=== PATIENT | male | born 1995 | race Caucasian/White ===

== ENCOUNTER 2025-03-03 08:32 | Emergency (ER) | payer OTHER, SELFPAY ==
[2025-03-03 08:37] VITALS: BP 113/74; PULSE 77; RESP 16; TEMP 36.4; O2SAT 100; BMI 20.7
--- NOTE | 2025-03-03 08:46 | CT_ITS ---
PROCEDURE: SPINE CERVICAL WITHOUT CONTRAS 03/03/2025 REASON FOR EXAM: FALL, SYNNCOPE TECHNIQUE: Procedure Code: CTSPC Modality: CT Procedure: SPINE CERVICAL WITHOUT CONTRAS Coronal and Sagittal reconstruction series were provided. One or more dose reduction techniques were used (e.g., Automated exposure control, adjustment of the mA and/or kV according to patient size, use of iterative reconstruction technique. RADIATION DOSE SUMMARY: DLP: 1261 mGycm COMPARISON: None FINDINGS: No acute compression deformity, fracture, or subluxation. No significant central canal stenosis or foramina stenosis. The prevertebral soft tissues are not thickened. Thyroid is unremarkable. Limited sections of the lung apices demonstrate no pneumothorax. CT/Spine Cervical without Contras IMPRESSION: No acute cervical fracture or subluxations. Reading Location: [id number]
--- NOTE | 2025-03-03 08:46 | CT_ITS ---
PROCEDURE: BRAIN/HEAD WITHOUT CONTRAST 03/03/2025 REASON FOR EXAM: FALL, SYNCOPE, HEAD TRAUMA TECHNIQUE: Procedure Code: CTBR Modality: CT Procedure: BRAIN/HEAD WITHOUT CONTRAST Coronal and Sagittal reconstruction series were provided. One or more dose reduction techniques were used (e.g., Automated exposure control, adjustment of the mA and/or kV according to patient size, use of iterative reconstruction technique. RADIATION DOSE SUMMARY: DLP: 830 mGycm COMPARISON: None FINDINGS: There is no acute infarct, intracranial hemorrhage, or mass effect. There is no hydrocephalus or significant midline shift. No acute, depressed calvarial fractures. Mild left frontal scalp contusion. The paranasal sinuses are clear. CT/Brain/Head without Contrast IMPRESSION: No acute intracranial process. Reading Location: [id number]
--- NOTE | 2025-03-03 08:46 | EKG12_ITS ---
Test Reason : ARRYTH Blood Pressure : */* mmHG Vent. Rate : 71 BPM Atrial Rate : 71 BPM P-R Int : 152 ms QRS Dur : 110 ms QT Int : 398 ms P-R-T Axes : 47 79 41 degrees QTcB Int : 432 ms Normal sinus rhythm with sinus arrhythmia Incomplete right bundle branch block Borderline ECG Confirmed by TITUS WILLIAMSON ([id number]), medical transcription editor REGINALD HERNÁNDEZ ([id number]) on 03/06/2025 6:56:07 AM Referred By: ER Confirmed By: TITUS WILLIAMSON
[2025-03-03 08:47] VITALS: BP 105/66; BP 108/70; BP 110/75; PULSE 66; PULSE 69; PULSE 81
--- NOTE | 2025-03-03 08:47 | EX.ED.DYSGE1 ---
HPI History of Present Illness Chief Complaint: Syncope Narrative Narrative: Patient is a 29-year-old male presenting to the emergency department for a syncopal event. 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 States that it was very hot in the room he was in. No seizure-like activity per bystanders. He states he does not remember anything shortly before passing out in the next thing he remembers is EMS telling him to come with them to the hospital. He states that he not drink or eat very much last night only had a banana. Denies any chest pain, shortness of breath, abdominal pain, nausea, vomiting or diaphoresis. He denies any dysuria or hematuria. Denies any vision changes, slurred speech, focal numbness or weakness. Denies any neck or back pain. States that this did happen once before in the summer and nothing was found on workup in the emergency department. He denies any family history of syncope or sudden cardiac . Prior similar symptoms: Yes Recent Illness/Hospitalization: No [facility] Medical History Syncope Social History Smoking Status: Current every day smoker tobacco type: smokeless tobacco ROS ROS ED ROS Narrative See HPI EXAM Physical Exam Narrative Exam Narrative: Vital signs: Reviewed General: Alert and orientedx2. Alert to self and place, not time. No acute distress HEENT: Head is normocephalic. 1 cm linear laceration to the left parietal scalp. oozing from the lac. Midface is stable and nontender to palpation. Pupils 3 mm equal round and reactive. Nares are patent. No septal hematoma. Oropharynx and throat exams normal. No oropharyngeal trauma. No tongue lacerations seen. Neck: Supple without lymphadenopathy nontender. Arrives in cervical collar. No midline cervical spinal tenderness to palpation. No step-offs or deformities. Cardiovascular: Regular rate and rhythm, no murmurs. No rubs or gallops. Normal S1 and S2 Respiratory: Clear to auscultation bilaterally. No wheezes, rales, rhonchi Chest: Chest wall is atraumatic and nontender to palpation. No crepitus, erythema or ecchymosis. Abdominal: Soft and nontender. Normal bowel sounds. No guarding or rebound. Nonsurgical abdomen Extremities: No midline thoracic or lumbar spinal tenderness to palpation. No step-offs or deformities. Extremities are atraumatic and nontender to palpation with normal active range of motion. Hips are stable and nontender to palpation. No bruising. Normal range of motion. Normal sensation. Skin: No rash or redness. Neurological: Cranial nerves II through XII are grossly intact. Normal strength and sensation. Normal cerebellar function The rest of the physical exam is unremarkable Const Vital Signs: 03/03/25 08:37 03/03/25 08:41 03/03/25 08:47 Temperature 97.6 F L Temperature Source Axillary Pulse Rate 77 Pulse Rate [Lying] 66 Pulse Rate [Sitting (for 1 minute prior to obtaining)] 69 Pulse Rate [Standing (for 1 minute prior to obtaining)] 81 Respiratory Rate 16 Respiratory Effort Normal Non-Labored Respiratory Pattern Tachypnea Blood Pressure 113/74 Blood Pressure [Lying] 105/66 Blood Pressure [Sitting (for 1 minute prior to obtaining)] 108/70 Blood Pressure [Standing (for 1 minute prior to obtaining)] 110/75 Blood Pressure Mean 87 Blood Pressure Mean [Lying] 79 Blood Pressure Mean [Sitting (for 1 minute prior to obtaining)] 82 Blood Pressure Mean [Standing (for 1 minute prior to obtaining)] 86 Pulse Ox 100 Oxygen Delivery Method Room Air MDM MDM MDM Narrative Medical decision making narrative: Patient is a 29-year-old male presenting to the emergency department after a syncopal event. Patient was seen and examined. Vitals are stable. Patient resting bed comfortably no acute distress. Differential includes but is not limited to: Vasovagal episode given this happened once in the summer and he was in a hot room today, did not eat or drink well prior. Possible seizure given alert and oriented x 2 possibly postictal. Cardiac dysrhythmia. Electrolyte derangement. Anemia. EKG shows NSR with sinus arrhythmia. No evidence of WPW, [place]. No ST elevation or depression. No abnormal T wave inversions. Fluid bolus started. CBC with no leukocytosis and normal hemoglobin. BMP with bicarb at 19.2 and anion gap of 17, no other significant abnormalities. Lactate of 3.3 which likely cause a small anion gap. Again fluids already running. Glucose of 123. CT brain with no acute intracranial process. CT cervical spine with no acute abnormalities. Chest x-ray reviewed by myself, no opacities, pneumothorax or widened mediastinum. Radiology read in agreement. Patient agreeable with a Adacel booster. This was given. Tylenol given for patient's head pain from the fall. Patient was reevaluated. He is now alert and oriented x 3. Cervical collar was removed and patient was able to fully range his neck with no pain. The small laceration on the left parietal portion of the scalp was irrigated copiously. No foreign body on wound exploration. Patient was offered lidocaine prior to stapling of the wound however explained that only 1 staple would be placed. He was agreeable with no lidocaine and going forward with the staple. 1 staple was placed with closure of the wound. Patient and family given wound care instructions including keeping the wound clean, dry. Instructed to watch for signs of infection including redness, drainage or warmth. Patient and family were educated on the elevated lactate and given his postictal period after the syncopal event I do have concern for first-time seizure. Him and his family were given instructions on following up with neurology as soon as possible and are taking in no swimming, bathing, operating heavy machinery or driving until following up. Patient was able to ambulate and tolerate p.o. prior to discharge. Patient discharged from the Emergency Department. I do not feel that the patient's evaluation reveals any acute reason for admission at this time. I instructed them to either follow-up with their primary care physician or promptly return to the Emergency Department for reevaluation should symptoms worsen or new symptoms develop. I explained what symptoms would indicate the need to return to the emergency department. Shared decision making was used. The patient voiced understanding of the treatment plan and is agreeable with it. Clinical impression: Seizure History & Record Review Discussion w/independent historian: EMS personnel, Patient and Significant other Lab Data Attestation: I reviewed the patient's lab results. Labs: Laboratory Results - last 24 hr 03/03/25 03/03/25 08:37 09:00 WBC 7.2 RBC 4.39 L Hgb 13.6 Hct 38.2 L MCV 87.0 MCH 31.0 MCHC 35.6 RDW Std Deviation 39.9 RDW Coeff of Oneal 12.6 Plt Count 178 MPV 9.6 Immature Gran % (Auto) 0.400 Neut % (Auto) 51.7 Lymph % (Auto) 37.4 Frederick % (Auto) 7.8 Eos % (Auto) 2.0 Baso % (Auto) 0.7 Absolute Neuts (auto) 3.7 Absolute Lymphs (auto) 2.68 Nucleated RBC % 0 Sodium 138 Potassium 3.6 Chloride 102 Carbon Dioxide 19.2 L Anion Gap 17 H BUN 12 Creatinine 0.95 Estim Creat Clear Calc 118.66 Est GFR (MDRD) Non-Af 111 BUN/Creatinine Ratio 12.1 Glucose 123 H Lactic Acid 3.3 H* Calcium 8.9 Radiography Chest X-Ray - ED: 1 View, Read by ED Physician, Normal, No Acute Disease and No Infiltrates Diagnostic Testing: Clinical Impression(s) from Imaging Studies Brain CT 03/03/25 08:46 IMPRESSION: No acute intracranial process. Reading Location: [facility] Cervical Spine CT 03/03/25 08:46 IMPRESSION: No acute cervical fracture or subluxations. Reading Location: [facility] Chest X-Ray 03/03/25 09:19 IMPRESSION: No focal consolidations. Reading Location: [facility] Discharge Plan Triage Chief Complaint: Syncope ED Provider: Salena Jones Dx/Rx/DC Orders Primary Care Provider: Cb Cruz Referrals: Cb Cruz MD [Primary Care Provider, Medical] Print Language: Gabonese
[2025-03-03 08:58] LABS: Hematocrit 38.2 % (40-54); Hemoglobin 13.6 g/dL (13.0-16.5); Immature Granulocytes Count 0.030 X10^3/uL (0.0-0.0); Mean Corp Hgb Conc 35.6 g/dL (32-36); Mean Corpuscular Volume 87.0 fL (80-94); Mean Platelet Vol. 9.6 fl (6.2-12.0); NRBC Flagged by Analyzer 0 % (0-5); Platelet Count 178 K/mm3 (150-450); RBC Distribution Width CV 12.6 % (11.6-14.6); RBC Distribution Width SD 39.9 fl (35.1-43.9); Red Blood Count 4.39 M/mm3 (4.6-6.2); White Blood Count 7.2 K/mm3 (4.4-11.0)
[2025-03-03] MEDS: 0.9% Normal Saline (1000mL) 1,000 ML 1000 ML IV (09:06)
--- NOTE | 2025-03-03 09:19 | RAD_ITS ---
PROCEDURE: CHEST 1 VIEW (PORTABLE) 03/03/2025 REASON FOR EXAM: SYNCOPE TECHNIQUE: Frontal view of the chest. FINDINGS: No focal consolidation. No pleural effusion or pneumothorax. Cardiac silhouette is within normal limits. No acute fractures. RAD/Chest 1 View (Portable) IMPRESSION: No focal consolidations. Reading Location: [id number]
[2025-03-03 09:27] LABS: Anion Gap 17 (5-15); BUN 12 mg/dL (4-19); BUN/Creat Ratio 12.1 RATIO (10-20); Calcium,Total 8.9 mg/dL (7.6-11.0); Carbon Dioxide 19.2 mmol/L (21.0-32.0); Chloride 102 mmol/L (98-108); Estimated Creatinine Clearance 118.66 ml/min (50-250); Glucose 123 mg/dL (70-99); Potassium 3.6 mmol/L (3.3-5.1)
[2025-03-03 10:14] VITALS: BP 105/67; PULSE 63; RESP 15; TEMP 36.8; O2SAT 99
[2025-03-03 13:05] LABS: Reflex Lactate? Y
== END 2025-03-03 10:35 | disposition home or self-care (01) ==
PROVIDERS: Emergency Provider Student in an Organized Health Care Education/Training Program; PCP Family Medicine; Visit Provider Student in an Organized Health Care Education/Training Program
DX: R56.9 Unspecified convulsions (principal); S01.01XA Laceration without foreign body of scalp, initial encounter; W01.10XA Fall on same level from slipping, tripping and stumbling with subsequent striking against unspecified object, initial encounter; R55 Syncope and collapse; Z23 Encounter for immunization; F17.220 Nicotine dependence, chewing tobacco, uncomplicated
CPT/HCPCS: 12001; 70450; 71045; 72125; 80048; 83605; 85025; 90715; 93005; 96360; 96372; 99285; A4216